=== PATIENT | male | born 1960 | race Caucasian/White ===

== ENCOUNTER → 2017-11-19 | Day surgery (SDC) | payer OTHER ==
[2017-11-15 10:36] LABS: BASOPHILS % 0.5 % (0.0-1.0); EOSINOPHILS # (AUTO) 0.2 (0.0-0.4); EOSINOPHILS % 2.5 % (0.0-6.0); HEMOGLOBIN 15.9 g/dL (14.0-18.0); LYMPHOCYTES # (AUTO) 1.8 (1.0-3.2); LYMPHOCYTES % 27.4 % (18.0-39.1); MEAN CORPUSCULAR HEMOGLOBIN 31.1 pg (28-32); MEAN CORPUSCULAR HGB CONC 34.6 g/dL (31-35); MONOCYTES # (AUTO) 0.6 (0.2-0.8); MONOCYTES % 9.5 % (4.4-11.3); NEUTROPHILS # (AUTO) 3.9 (2.1-6.9); NEUTROPHILS % 59.6 % (38.7-80.0); PLATELET COUNT 182 x10e3/uL (140-360); RED BLOOD COUNT 5.11 x10e6/uL (4.3-5.7); RED CELL DISTRIBUTION WIDTH 12.1 % (11.7-14.4)
[2017-11-15 11:11] LABS: ALANINE AMINOTRANSFERASE 52 IU/L (0-55); ALBUMIN/GLOBULIN RATIO 1.3 (0.8-2.0); ALKALINE PHOSPHATASE 95 IU/L (40-150); ANION GAP 12.9 mmol/L (8-16); BLOOD UREA NITROGEN 13 mg/dL (7-26); BUN/CREATININE RATIO 12 (6-25); CALCIUM 9.5 mg/dL (8.4-10.2); CARBON DIOXIDE 27 mmol/L (22-29); CHLORIDE 109 mmol/L (98-107); CHOL/HDL RATIO 4.7 (3.9-4.7); CHOLESTEROL 174 MD/DL (0-199); EST GLOMERULAR FILTRATION RATE > 60 ML/MIN (60-); GLUCOSE 105 mg/dL (74-118); HDL CHOLESTEROL 37 MG/DL (40-60); LDL CHOLESTEROL 80 MG/DL (60-130); POTASSIUM 4.9 mmol/L (3.5-5.1); SODIUM 144 mmol/L (136-145); TRIGLYCERIDES 283 MG/DL (0-149)
[~2017-11-19] VITALS: Ht 185.4 cm; Wt 95.3 kg
[~2017-11-19] MED LIST: ATORVASTATIN CA20 MG PO; FENTANYL CITRATE/PF 100MCG/2 ML INJ ONE; HEPARIN SOD (PORCINE) 1000 UNIT/ML 30ML ONE; HEPARIN SOD/SOD CHLORIDE 2,000 ML ONE; IOPAMIDOL 370 MG/ML 200 ML INFUS..BTL INJ ONE; LIDOCAINE HCL 2% LOCAL 20 ML VIAL ONE; MIDAZOLAM HCL 2 MG/2 ML VIAL ONE; NITROGLYCERIN/D5W 200 MCG/ML 250 ML ONE; SODIUM CHLORIDE 0.9% 1000ML 1,000 ML ONE; VERAPAMIL HCL 2.5 MG/ML 2 ML VIAL ONE
[2017-11-19 06:40] VITALS: BP 131/87
--- NOTE | 2017-11-19 09:17 | Operative Report ---
DATE OF PROCEDURE: November 19, 2017 INDICATIONS: Coronary artery disease and abnormal stress test. PROCEDURES PERFORMED 1. Left heart catheterization. 2. Selective coronary angiography. 3. Deployment of right wrist transradial band. COMPLICATIONS: None. RECOMMENDATIONS: Medical therapy versus left internal mammary artery bypass to LAD. Access obtained in the right radial artery using ultrasound guidance. A 5-[place] sheath was placed. Diagnostic coronary angiogram with patent left main ostia. Left anterior descending artery 70% to 80% stenosis. Multiple stents were noted the left anterior descending artery following the region of the diagonal artery. The stents are completely occluded without reconstitution. Circumflex was a dominant vessel, 50% midcircumflex stenosis. Right coronary artery was nondominant. Grade 2 collaterals from the right coronary artery supplied the distal left anterior descending artery. No intervention is indicated. Further recommendation based on discussion with surgery. Right wrist TR band applied. Patient discharged home same day. Job#: [id number]
== END | disposition home or self-care (01) ==
LOC: CATH LAB 05:42
PROVIDERS: ATTEND Internal Medicine Interventional Cardiology
DX: I25.118 Atherosclerotic heart disease of native coronary artery with other forms of angina pectoris (principal); I25.82 Chronic total occlusion of coronary artery; R94.39 Abnormal result of other cardiovascular function study; Z95.5 Presence of coronary angioplasty implant and graft; Z01.812 Encounter for preprocedural laboratory examination; Z82.49 Family history of ischemic heart disease and other diseases of the circulatory system
CPT/HCPCS: 36415; 77002; 80053; 80061; 85025; 93458; C1887; J1644; J2001; J2250; J7030; Q9967; 36140